=== PATIENT | female | born 1945 | race Caucasian/White ===

== ENCOUNTER 2019-08-28 10:35 | Observation (INO) ==
[2019-08-28 11:57] LABS: Basophils % 0.4 % (0.0-0.8); Eosinophils # 0.2 10*3/uL (0.0-0.87); Eosinophils % 3.2 % (0.00-10.9); Hematocrit 33.2 VOL% (35.7-47.0); Hemoglobin 11.2 GM/DL (12.0-16.0); Immature Granulocytes % 0.6 %; Immature Granulocytes Absolute 0.04 #; Lymphocytes # 1.3 10*3/uL (1.4-4.0); Mean Corpuscular HGB Conc 33.7 GM/DL (32-36); Mean Corpuscular Volume 86.2 FL (87-102); Mean Platelet Volume 9.6 FL (9.6-12.0); Monocytes % 6.3 % (1.7-12.7); Neutrophils % 70.5 % (38.7-73.9); Platelet Count 138 T/CUMM (130-400); Red Blood Count 3.85 MC/CUMM (3.8-5.5); Red Cell Distribution Width 15.4 % (9.3-17.3)
[2019-08-28 12:15] LABS: Apearance,Urine CLOUDY (Clear); Bacteria,Urine Occasional /HPF (Few); Bilirubin,Urine Negative (Negative); Blood, Urine Moderate mg/dL (Negative); Glucose,Urine (UA) Negative (Negative); Ketones,Urine Negative (Negative); Nitrite,Urine Negative (Negative); Protein,Urine 30 MG/DL; RBC,Urine 12 /HPF (0-4); Squamous Epithelial Cell,Urine Occasional /HPF (0-10); Urine Color Yellow (Yellow); Urine Specific Gravity 1.006 (1.001-1.035); Urine Urobilinogen < 2.0 EU/DL (0.2-1.0); WBC,Urine 186 /HPF (0-6)
[2019-08-28 12:25] LABS: Platelet Estimate Adequate
[2019-08-28 12:26] LABS: Anisocytosis 1+
[2019-08-28] MEDS ORDERED: cefTRIAXone 1,000 MG in SODIUM CHLORIDE 0.9% 100 ML IV STA (13:02)
[2019-08-28] MEDS ORDERED: DEXTROSE 50% 25 GM/50 ML VIAL IV PRN (13:18)
[2019-08-28] MEDS ORDERED: GLUCAGON 1 MG VIAL IM PRN (13:18)
[2019-08-28] MEDS ORDERED: ONDANSETRON 4 MG/2 ML VIAL IV PRN (13:18)
[2019-08-28 14:09] LABS: Albumin 2.8 G/DL (3.4-5.0); Bilirubin,Total 1.1 MG/DL (0.2-1.0); Calcium 9.4 MG/DL (8.5-10.1); Osmolality,Calculated 291.7 MOS/KG (273-304); Total Protein 7.2 G/DL (6.4-8.3)
[2019-08-28] MEDS ORDERED: hydrALAZINE 20 MG/1 ML VIAL IV PRN (14:13)
[2019-08-28] MEDS: SODIUM CHLORIDE 0.9% 1,000 ML IV SCH (15:46)
[2019-08-28] MEDS: INSULIN LISPRO 100 UNIT/ML SUBCUT SCH ×2 (15:56→21:38)
[2019-08-28] MEDS: DESITIN 4OZ/NYSTATIN 15 GRAM MIXTURE PASTE TOP SCH (21:38)
[2019-08-29] MEDS: SODIUM CHLORIDE 0.9% 1,000 ML IV SCH ×2 (05:07→18:09)
[2019-08-29 05:33] LABS: Basophils % 0.5 % (0.0-0.8); Eosinophils # 0.3 10*3/uL (0.0-0.87); Hematocrit 35.7 VOL% (35.7-47.0); Hemoglobin 11.8 GM/DL (12.0-16.0); Immature Granulocytes % 0.5 %; Immature Granulocytes Absolute 0.03 #; Lymphocytes # 1.5 10*3/uL (1.4-4.0); Lymphocytes % 23.7 % (21.3-54.2); Mean Corpuscular HGB Conc 33.1 GM/DL (32-36); Mean Corpuscular Volume 88.6 FL (87-102); Mean Platelet Volume 9.6 FL (9.6-12.0); Monocytes % 9.6 % (1.7-12.7); Neutrophils % 60.7 % (38.7-73.9); Platelet Count 221 T/CUMM (130-400); Red Blood Count 4.03 MC/CUMM (3.8-5.5); Red Cell Distribution Width 15.5 % (9.3-17.3); White Blood Count 6.4 T/CUMM (4-12)
[2019-08-29 05:56] LABS: Albumin 2.1 G/DL (3.4-5.0); Calcium 8.1 MG/DL (8.5-10.1); Osmolality,Calculated 290.7 MOS/KG (273-304); Total Protein 6.8 G/DL (6.4-8.3)
[2019-08-29] MEDS ORDERED: ACETAMINOPHEN 325 MG TABLET PO PRN (09:28)
[2019-08-29] MEDS: DESITIN 4OZ/NYSTATIN 15 GRAM MIXTURE PASTE TOP SCH ×2 (09:57→22:02)
[2019-08-29] MEDS: POTASSIUM CHLORIDE 20 MEQ TABLET PO PRN ×4 (09:57→16:45)
[2019-08-29] MEDS: cefTRIAXone 1,000 MG in SYRINGE 1 EACH IV SCH (09:57)
[2019-08-29] MEDS: INSULIN LISPRO 100 UNIT/ML SUBCUT SCH ×4 (10:08→22:02)
[2019-08-29] MEDS: INSULIN GLARGINE 100 UNIT/ML SUBCUT SCH (22:02)
[2019-08-29] MEDS: ZALEPLON 5 MG CAPSULE PO SCH (22:02)
[2019-08-30 06:47] LABS: Basophils % 0.5 % (0.0-0.8); Eosinophils # 0.3 10*3/uL (0.0-0.87); Eosinophils % 5.2 % (0.00-10.9); Hematocrit 32.5 VOL% (35.7-47.0); Immature Granulocytes % 0.3 %; Immature Granulocytes Absolute 0.02 #; Lymphocytes # 1.2 10*3/uL (1.4-4.0); Lymphocytes % 21.1 % (21.3-54.2); Mean Corpuscular HGB Conc 33.8 GM/DL (32-36); Mean Corpuscular Volume 87.6 FL (87-102); Mean Platelet Volume 9.6 FL (9.6-12.0); Monocytes % 9.2 % (1.7-12.7); Neutrophils % 63.7 % (38.7-73.9); Platelet Count 190 T/CUMM (130-400); Red Blood Count 3.71 MC/CUMM (3.8-5.5); Red Cell Distribution Width 15.3 % (9.3-17.3); White Blood Count 5.8 T/CUMM (4-12)
[2019-08-30 07:09] LABS: Calcium 8.1 MG/DL (8.5-10.1); Osmolality,Calculated 277.1 MOS/KG (273-304)
[2019-08-30] MEDS: SODIUM CHLORIDE 0.9% 1,000 ML IV SCH ×2 (07:29→22:00)
[2019-08-30] MEDS ORDERED: CYANOCOBALAMIN 1000 MCG/1 ML VIAL IM SCH (09:00)
[2019-08-30] MEDS: DESITIN 4OZ/NYSTATIN 15 GRAM MIXTURE PASTE TOP SCH ×2 (10:16→22:30)
[2019-08-30] MEDS: cefTRIAXone 1,000 MG in SYRINGE 1 EACH IV SCH (10:16)
[2019-08-30] MEDS: INSULIN LISPRO 100 UNIT/ML SUBCUT SCH ×4 (10:16→22:25)
[2019-08-30] MEDS: CHOLECALCIFEROL 5,000 UNIT TABLET PO SCH (10:17)
[2019-08-30] MEDS: ENOXAPARIN 40 MG/0.4 ML SYRINGE SUBCUT SCH (13:26)
[2019-08-30] MEDS: ERTAPENEM 1,000 MG in SODIUM CHLORIDE 0.9% 100 ML IV SCH (16:30)
[2019-08-30] MEDS: INSULIN GLARGINE 100 UNIT/ML SUBCUT SCH (22:25)
[2019-08-30] MEDS: ZALEPLON 5 MG CAPSULE PO SCH (22:27)
[2019-08-31 06:38] LABS: Basophils % 0.4 % (0.0-0.8); Eosinophils # 0.3 10*3/uL (0.0-0.87); Eosinophils % 5.7 % (0.00-10.9); Hemoglobin 10.8 GM/DL (12.0-16.0); Immature Granulocytes % 0.6 %; Immature Granulocytes Absolute 0.03 #; Lymphocytes % 20.3 % (21.3-54.2); Mean Corpuscular HGB Conc 33.8 GM/DL (32-36); Mean Corpuscular Volume 86.3 FL (87-102); Mean Platelet Volume 9.5 FL (9.6-12.0); Monocytes % 9.3 % (1.7-12.7); Neutrophils % 63.7 % (38.7-73.9); Platelet Count 177 T/CUMM (130-400); Red Blood Count 3.71 MC/CUMM (3.8-5.5); Red Cell Distribution Width 15.2 % (9.3-17.3); White Blood Count 5.1 T/CUMM (4-12)
[2019-08-31 07:02] LABS: Calcium 8.3 MG/DL (8.5-10.1)
[2019-08-31] MEDS: CHOLECALCIFEROL 5,000 UNIT TABLET PO SCH (09:03)
[2019-08-31] MEDS: DESITIN 4OZ/NYSTATIN 15 GRAM MIXTURE PASTE TOP SCH (09:03)
[2019-08-31] MEDS: INSULIN LISPRO 100 UNIT/ML SUBCUT SCH ×2 (09:03→12:16)
[2019-08-31] MEDS: ENOXAPARIN 40 MG/0.4 ML SYRINGE SUBCUT SCH (12:16)
[2019-08-31] MEDS: SODIUM CHLORIDE 0.9% 1,000 ML IV SCH (12:16)
[2019-08-31 13:52] VITALS: BP 169/85
[2019-08-31] MEDS: ERTAPENEM 1,000 MG in SODIUM CHLORIDE 0.9% 100 ML IV SCH (16:16)
== END 2019-08-31 15:50 ==
LOC: EDUNIT# → EDBD → N.EDINP 10:35 → N.ED 10:35 → SUATTDRO 13:15 → SUPCPDRO 13:15 → N.EDINP 15:20 → N.2E 15:56
PROVIDERS: ADMIT Internal Medicine; ATTEND Internal Medicine Cardiovascular Disease

== ENCOUNTER 2019-09-13 06:32 | Inpatient (IN) ==
[2019-09-13] MEDS ORDERED: SODIUM CHLORIDE 0.9% 500 ML IV STA (07:00)
[2019-09-13 07:11] LABS: Basophils % 0.3 % (0.0-0.8); Eosinophils # 0.1 10*3/uL (0.0-0.87); Eosinophils % 2.4 % (0.00-10.9); Hematocrit 36.8 VOL% (35.7-47.0); Hemoglobin 12.9 GM/DL (12.0-16.0); Immature Granulocytes % 0.6 %; Immature Granulocytes Absolute 0.02 #; Lymphocytes % 29.6 % (21.3-54.2); Mean Corpuscular HGB Conc 35.1 GM/DL (32-36); Mean Corpuscular Volume 85.2 FL (87-102); Mean Platelet Volume 9.5 FL (9.6-12.0); Monocytes % 10.5 % (1.7-12.7); Neutrophils % 56.6 % (38.7-73.9); Platelet Count 243 T/CUMM (130-400); Red Blood Count 4.32 MC/CUMM (3.8-5.5); Red Cell Distribution Width 15.5 % (9.3-17.3); White Blood Count 3.3 T/CUMM (4-12)
[2019-09-13 07:18] LABS: INR 1.2; PT Patient Result 13.2 SECS (9.8-11.9)
[2019-09-13] MEDS ORDERED: ERTAPENEM 1,000 MG in SODIUM CHLORIDE 0.9% 100 ML IV ONE (07:20)
[2019-09-13 07:21] LABS: Albumin 2.5 G/DL (3.4-5.0); Bilirubin,Total 0.7 MG/DL (0.2-1.0); Calcium 8.8 MG/DL (8.5-10.1); Total Protein 7.2 G/DL (6.4-8.3)
[2019-09-13 07:31] LABS: Ferritin 67.8 ng/ml (8-252)
[2019-09-13] MEDS ORDERED: MEROPENEM 1,000 MG in SODIUM CHLORIDE 0.9% 100 ML IV ONE (08:49)
[2019-09-13] MEDS ORDERED: MEROPENEM 500 MG VIAL ONE (08:49)
[2019-09-13 08:58] LABS: Apearance,Urine CLEAR (Clear); Bacteria,Urine Occasional /HPF (Few); Bilirubin,Urine Negative (Negative); Blood, Urine Negative (Negative); Glucose,Urine (UA) Negative (Negative); Ketones,Urine Negative (Negative); Nitrite,Urine Negative (Negative); Protein,Urine 100 MG/DL; Squamous Epithelial Cell,Urine Occasional /HPF (0-10); Urine Color Yellow (Yellow); Urine Urobilinogen < 2.0 EU/DL (0.2-1.0)
[2019-09-13] MEDS ORDERED: ONDANSETRON 4 MG/2 ML VIAL IV PRN (10:27)
[2019-09-13] MEDS ORDERED: DEXTROSE 50% 25 GM/50 ML VIAL IV PRN ×2 (10:27→10:31)
[2019-09-13] MEDS ORDERED: GLUCAGON 1 MG VIAL IM PRN ×3 (10:27→10:31)
[2019-09-13] MEDS ORDERED: LACTULOSE 320 GM/480 ML BOTTLE RECTAL PRN (10:30)
[2019-09-13] MEDS ORDERED: LACTULOSE 320 GM/480 ML BOTTLE RECTAL STA (10:30)
[2019-09-13] MEDS ORDERED: DEXTROSE 10% 250 ML BAG IV PRN (10:31)
[2019-09-13 10:53] LABS: Risk Ratio 3.64; Thyroid Stimulating Hormone 5.37 uIU/ml (0.358-3.74)
[2019-09-13 11:49] LABS: Hepatitis B Core IgM Quant 0.12 Index; Hepatitis B Surface Ag Result Negative (Negative); Hepatitis C Virus Ab Result Negative (Negative)
[2019-09-13] MEDS ORDERED: INSULIN LISPRO 100 UNIT/ML SUBCUT SCH (12:00)
[2019-09-13] MEDS: SODIUM CHLORIDE 0.9% 1,000 ML IV SCH (12:30)
[2019-09-13] MEDS: INSULIN LISPRO 100 UNIT/ML SUBCUT SCH ×2 (17:36→19:02)
[2019-09-13] MEDS ORDERED: ALUMINUM/MAGNES/SIMETH MAX STR 30 ML UDCUP PO PRN (19:50)
[2019-09-14] MEDS: INSULIN GLARGINE 100 UNIT/ML SUBCUT SCH ×2 (00:27→20:57)
[2019-09-14] MEDS: INSULIN LISPRO 100 UNIT/ML SUBCUT SCH ×4 (01:26→20:57)
[2019-09-14] MEDS: SODIUM CHLORIDE 0.9% 1,000 ML IV SCH ×2 (04:08→20:09)
[2019-09-14 07:06] LABS: Basophils % 0.3 % (0.0-0.8); Eosinophils # 0.1 10*3/uL (0.0-0.87); Eosinophils % 3.2 % (0.00-10.9); Hematocrit 32.3 VOL% (35.7-47.0); Hemoglobin 10.9 GM/DL (12.0-16.0); Immature Granulocytes % 0.3 %; Immature Granulocytes Absolute 0.01 #; Lymphocytes # 0.8 10*3/uL (1.4-4.0); Mean Corpuscular HGB Conc 33.7 GM/DL (32-36); Mean Corpuscular Volume 87.1 FL (87-102); Mean Platelet Volume 9.5 FL (9.6-12.0); Monocytes % 9.4 % (1.7-12.7); Neutrophils % 62.8 % (38.7-73.9); Platelet Count 195 T/CUMM (130-400); Red Blood Count 3.71 MC/CUMM (3.8-5.5); Red Cell Distribution Width 15.9 % (9.3-17.3); White Blood Count 3.4 T/CUMM (4-12)
[2019-09-14 07:21] LABS: Albumin 2.1 G/DL (3.4-5.0); Bilirubin,Total 0.8 MG/DL (0.2-1.0); Calcium 8.2 MG/DL (8.5-10.1); Osmolality,Calculated 283.8 MOS/KG (273-304); Total Protein 6.4 G/DL (6.4-8.3)
[2019-09-14] MEDS ORDERED: LACTULOSE 20 GM/30 ML UDCUP PO PRN (07:54)
[2019-09-14] MEDS ORDERED: VANCOMYCIN INJ 1,000 MG in SODIUM CHLORIDE 0.9% 250 ML IV SCH (09:00)
[2019-09-14] MEDS: RIFAXIMIN 550 MG TABLET PO SCH ×2 (09:30→20:57)
[2019-09-14] MEDS: CHOLECALCIFEROL 1,000 UNIT TABLET PO SCH (09:30)
[2019-09-14] MEDS: ENOXAPARIN 30 MG/0.3 ML SYRINGE SUBCUT SCH (09:30)
[2019-09-14] MEDS ORDERED: POTASSIUM CHLORIDE 20 MEQ TABLET PO ONE (10:37)
[2019-09-14] MEDS: ACETAMINOPHEN 325 MG TABLET PO PRN (12:17)
[2019-09-14] MEDS: amLODIPine 5 MG TABLET PO SCH (12:18)
[2019-09-14] MEDS: ZALEPLON 5 MG CAPSULE PO SCH (20:57)
[2019-09-15 05:55] LABS: Eosinophils # 0.1 10*3/uL (0.0-0.87); Eosinophils % 5.3 % (0.00-10.9); Hematocrit 28.3 VOL% (35.7-47.0); Hemoglobin 9.4 GM/DL (12.0-16.0); Immature Granulocytes % 0.4 %; Immature Granulocytes Absolute 0.01 #; Lymphocytes # 0.9 10*3/uL (1.4-4.0); Lymphocytes % 36.3 % (21.3-54.2); Mean Corpuscular HGB Conc 33.2 GM/DL (32-36); Mean Corpuscular Volume 88.2 FL (87-102); Mean Platelet Volume 9.8 FL (9.6-12.0); Monocytes % 16.3 % (1.7-12.7); Neutrophils % 41.7 % (38.7-73.9); Platelet Count 115 T/CUMM (130-400); Red Blood Count 3.21 MC/CUMM (3.8-5.5); Red Cell Distribution Width 15.4 % (9.3-17.3); White Blood Count 2.5 T/CUMM (4-12)
[2019-09-15] MEDS: ACETAMINOPHEN 325 MG TABLET PO PRN (05:56)
[2019-09-15] MEDS: LEVOTHYROXINE 50 MCG TABLET PO SCH (05:56)
[2019-09-15 06:19] LABS: Eosinophils 3 % (0-10); Hypochromasia Slight; Lymphocytes 28 % (20-55); Ovalocytes Slight; Platelet Estimate Decreased; Segmented Neutrophils 55 % (50-85); Total Cells Counted 100
[2019-09-15 06:38] LABS: Albumin 1.5 G/DL (3.4-5.0); Bilirubin,Total 0.6 MG/DL (0.2-1.0); Osmolality,Calculated 289.1 MOS/KG (273-304)
[2019-09-15] MEDS: INSULIN LISPRO 100 UNIT/ML SUBCUT SCH ×4 (08:00→20:15)
[2019-09-15] MEDS: SODIUM CHLORIDE 0.9% 1,000 ML IV SCH (09:30)
[2019-09-15] MEDS: ENOXAPARIN 30 MG/0.3 ML SYRINGE SUBCUT SCH (09:31)
[2019-09-15] MEDS: FUROSEMIDE 40 MG TABLET PO SCH (09:31)
[2019-09-15] MEDS: CHOLECALCIFEROL 1,000 UNIT TABLET PO SCH (09:31)
[2019-09-15] MEDS: amLODIPine 5 MG TABLET PO SCH (09:31)
[2019-09-15] MEDS: RIFAXIMIN 550 MG TABLET PO SCH ×2 (09:31→20:11)
[2019-09-15] MEDS: VANCOMYCIN INJ 1,000 MG in SODIUM CHLORIDE 0.9% 250 ML IV SCH (09:32)
[2019-09-15] MEDS: SPIRONOLACTONE 25 MG TABLET PO SCH (09:32)
[2019-09-15 15:18] LABS: Ferritin 62.7 ng/ml (8-252)
[2019-09-15] MEDS: INSULIN GLARGINE 100 UNIT/ML SUBCUT SCH (20:11)
[2019-09-15] MEDS: ZALEPLON 5 MG CAPSULE PO SCH (20:11)
[2019-09-16] MEDS: VANCOMYCIN INJ 1,000 MG in SODIUM CHLORIDE 0.9% 250 ML IV SCH ×2 (03:15→21:47)
[2019-09-16 05:28] LABS: Eosinophils # 0.1 10*3/uL (0.0-0.87); Eosinophils % 5.1 % (0.00-10.9); Hematocrit 29.2 VOL% (35.7-47.0); Immature Granulocytes % 0.4 %; Immature Granulocytes Absolute 0.01 #; Lymphocytes # 0.5 10*3/uL (1.4-4.0); Lymphocytes % 19.9 % (21.3-54.2); Mean Corpuscular HGB Conc 34.2 GM/DL (32-36); Mean Corpuscular Volume 85.1 FL (87-102); Monocytes % 11.3 % (1.7-12.7); Neutrophils % 63.3 % (38.7-73.9); Platelet Count 110 T/CUMM (130-400); Red Blood Count 3.43 MC/CUMM (3.8-5.5); Red Cell Distribution Width 15.3 % (9.3-17.3); White Blood Count 2.6 T/CUMM (4-12)
[2019-09-16 05:47] LABS: Albumin 1.9 G/DL (3.4-5.0); Bilirubin,Total 0.5 MG/DL (0.2-1.0); Calcium 7.5 MG/DL (8.5-10.1); Osmolality,Calculated 275.4 MOS/KG (273-304); Total Protein 5.5 G/DL (6.4-8.3)
[2019-09-16 05:50] LABS: Hypochromasia 1+; Microcytosis 1+; Platelet Estimate Decreased
[2019-09-16] MEDS: LEVOTHYROXINE 50 MCG TABLET PO SCH (06:06)
[2019-09-16] MEDS: CHOLECALCIFEROL 1,000 UNIT TABLET PO SCH (10:00)
[2019-09-16] MEDS: amLODIPine 10 MG TABLET PO SCH (10:00)
[2019-09-16] MEDS: INSULIN LISPRO 100 UNIT/ML SUBCUT SCH ×4 (10:00→21:46)
[2019-09-16] MEDS: ENOXAPARIN 40 MG/0.4 ML SYRINGE SUBCUT SCH (10:00)
[2019-09-16] MEDS: SPIRONOLACTONE 25 MG TABLET PO SCH (10:00)
[2019-09-16] MEDS: FUROSEMIDE 40 MG TABLET PO SCH (10:00)
[2019-09-16] MEDS: RIFAXIMIN 550 MG TABLET PO SCH ×2 (10:01→21:45)
[2019-09-16] MEDS: ACETAMINOPHEN 325 MG TABLET PO PRN (10:19)
[2019-09-16] MEDS: LACTULOSE 20 GM/30 ML UDCUP PO SCH (21:45)
[2019-09-16] MEDS: ZALEPLON 5 MG CAPSULE PO SCH (21:45)
[2019-09-16] MEDS: INSULIN GLARGINE 100 UNIT/ML SUBCUT SCH (21:47)
[2019-09-17 05:37] LABS: Eosinophils # 0.1 10*3/uL (0.0-0.87); Eosinophils % 4.8 % (0.00-10.9); Hematocrit 30.2 VOL% (35.7-47.0); Hemoglobin 10.2 GM/DL (12.0-16.0); Immature Granulocytes Absolute 0.02 #; Lymphocytes # 0.5 10*3/uL (1.4-4.0); Lymphocytes % 22.4 % (21.3-54.2); Mean Corpuscular HGB Conc 33.8 GM/DL (32-36); Mean Corpuscular Volume 87.5 FL (87-102); Mean Platelet Volume 10.1 FL (9.6-12.0); Monocytes % 11.9 % (1.7-12.7); Neutrophils % 59.9 % (38.7-73.9); Platelet Count 147 T/CUMM (130-400); Red Blood Count 3.45 MC/CUMM (3.8-5.5); Red Cell Distribution Width 15.2 % (9.3-17.3); White Blood Count 2.1 T/CUMM (4-12)
[2019-09-17] MEDS: LEVOTHYROXINE 50 MCG TABLET PO SCH (05:51)
[2019-09-17 06:02] LABS: Hypochromasia 1+; Microcytosis Slight
[2019-09-17 06:03] LABS: Platelet Estimate Normal
[2019-09-17 06:09] LABS: Calcium 7.8 MG/DL (8.5-10.1); Osmolality,Calculated 277.1 MOS/KG (273-304)
[2019-09-17] MEDS: CHOLECALCIFEROL 1,000 UNIT TABLET PO SCH (08:03)
[2019-09-17] MEDS: ENOXAPARIN 40 MG/0.4 ML SYRINGE SUBCUT SCH (08:03)
[2019-09-17] MEDS: amLODIPine 10 MG TABLET PO SCH (08:04)
[2019-09-17] MEDS: RIFAXIMIN 550 MG TABLET PO SCH ×2 (08:04→21:17)
[2019-09-17] MEDS: LACTULOSE 20 GM/30 ML UDCUP PO SCH ×3 (08:05→21:30)
[2019-09-17] MEDS: SPIRONOLACTONE 25 MG TABLET PO SCH (08:05)
[2019-09-17] MEDS: FUROSEMIDE 40 MG TABLET PO SCH (08:05)
[2019-09-17] MEDS: INSULIN LISPRO 100 UNIT/ML SUBCUT SCH ×4 (08:05→21:17)
[2019-09-17] MEDS: ACETAMINOPHEN 325 MG TABLET PO PRN (15:43)
[2019-09-17] MEDS: ZALEPLON 5 MG CAPSULE PO SCH (21:17)
[2019-09-17] MEDS: INSULIN GLARGINE 100 UNIT/ML SUBCUT SCH (21:17)
[2019-09-18] MEDS: LEVOTHYROXINE 50 MCG TABLET PO SCH (06:23)
[2019-09-18 07:08] LABS: Eosinophils # 0.1 10*3/uL (0.0-0.87); Eosinophils % 5.5 % (0.00-10.9); Hematocrit 30.8 VOL% (35.7-47.0); Hemoglobin 10.6 GM/DL (12.0-16.0); Immature Granulocytes % 1.3 %; Immature Granulocytes Absolute 0.03 #; Lymphocytes # 0.6 10*3/uL (1.4-4.0); Mean Corpuscular HGB Conc 34.4 GM/DL (32-36); Mean Corpuscular Volume 85.1 FL (87-102); Mean Platelet Volume 10.9 FL (9.6-12.0); Monocytes % 12.3 % (1.7-12.7); Neutrophils % 54.9 % (38.7-73.9); Platelet Count 116 T/CUMM (130-400); Red Blood Count 3.62 MC/CUMM (3.8-5.5); Red Cell Distribution Width 15.3 % (9.3-17.3); White Blood Count 2.4 T/CUMM (4-12)
[2019-09-18 07:19] LABS: Calcium 7.7 MG/DL (8.5-10.1); Osmolality,Calculated 279.1 MOS/KG (273-304)
[2019-09-18] MEDS ORDERED: MAGNESIUM SULF RIDER 4 GM in PREMIX 1 EACH IV PRN (07:25)
[2019-09-18] MEDS ORDERED: MAGNESIUM SULF RIDER 2 GM in PREMIX 1 EACH IV PRN (07:25)
[2019-09-18 07:42] LABS: Anisocytosis 1+; Band Neutrophils 7 % (0-10); Eosinophils 3 % (0-10); Lymphocytes 21 % (20-55); Nucleated Red Blood Cells 2 (0-5); Platelet Estimate Adequate; Segmented Neutrophils 60 % (50-85); Total Cells Counted 100
[2019-09-18 07:43] LABS: Macrocytosis Slight
[2019-09-18] MEDS: CHOLECALCIFEROL 1,000 UNIT TABLET PO SCH (08:20)
[2019-09-18] MEDS: SPIRONOLACTONE 25 MG TABLET PO SCH (08:20)
[2019-09-18] MEDS: ENOXAPARIN 40 MG/0.4 ML SYRINGE SUBCUT SCH (08:20)
[2019-09-18] MEDS: RIFAXIMIN 550 MG TABLET PO SCH ×2 (08:20→21:39)
[2019-09-18] MEDS: amLODIPine 10 MG TABLET PO SCH (08:20)
[2019-09-18] MEDS: LACTULOSE 20 GM/30 ML UDCUP PO SCH ×2 (08:20→21:39)
[2019-09-18] MEDS: FUROSEMIDE 40 MG TABLET PO SCH (08:20)
[2019-09-18] MEDS: INSULIN LISPRO 100 UNIT/ML SUBCUT SCH ×4 (08:35→21:39)
[2019-09-18] MEDS: ACETAMINOPHEN 325 MG TABLET PO PRN (16:03)
[2019-09-18] MEDS: INSULIN GLARGINE 100 UNIT/ML SUBCUT SCH (21:39)
[2019-09-19] MEDS: ZALEPLON 5 MG CAPSULE PO SCH (00:22)
[2019-09-19] MEDS: LEVOTHYROXINE 50 MCG TABLET PO SCH (06:00)
[2019-09-19] MEDS: CHOLECALCIFEROL 1,000 UNIT TABLET PO SCH (10:05)
[2019-09-19] MEDS: amLODIPine 10 MG TABLET PO SCH (10:05)
[2019-09-19] MEDS: LACTULOSE 20 GM/30 ML UDCUP PO SCH (10:05)
[2019-09-19] MEDS: FUROSEMIDE 40 MG TABLET PO SCH (10:05)
[2019-09-19] MEDS: RIFAXIMIN 550 MG TABLET PO SCH (10:07)
[2019-09-19] MEDS: ENOXAPARIN 40 MG/0.4 ML SYRINGE SUBCUT SCH (10:07)
[2019-09-19] MEDS: SPIRONOLACTONE 25 MG TABLET PO SCH (10:12)
[2019-09-19] MEDS: INSULIN LISPRO 100 UNIT/ML SUBCUT SCH ×2 (10:37→13:17)
[2019-09-19 13:55] VITALS: BP 131/60
[2019-10-13] MEDS ORDERED: CYANOCOBALAMIN 1000 MCG/1 ML VIAL IM SCH (08:00)
== END 2019-09-19 14:08 | DRG 441 ==
LOC: EDUNIT# → EDBD → N.ED 06:32 → N.EDINP 09:57 → SUATTDRO 09:57 → N.2E 13:45 → N.TELES 15:42 → N.2W 09-15 11:42 → N.2E 09-18 14:06
PROVIDERS: ADMIT Family Medicine; ATTEND Internal Medicine

== ENCOUNTER 2020-07-08 14:44 | Inpatient (IN) ==
[2020-07-08] MEDS ORDERED: SODIUM CHLORIDE 0.9% 1,000 ML IV STA (15:48)
[2020-07-08 16:00] LABS: Bilirubin,Urine Negative (Negative); Blood, Urine Moderate mg/dL (Negative); Glucose,Urine (UA) Negative (Negative); Ketones,Urine Negative (Negative); Nitrite,Urine Negative (Negative); Protein,Urine 100 MG/DL; Urine Appearance CLOUDY (Clear); Urine Color Yellow (Yellow); Urine Specific Gravity 1.009 (1.001-1.035); Urine Urobilinogen < 2.0 EU/DL (0.2-1.0); WBC,Urine 3062 /HPF (0-6)
[2020-07-08] MEDS ORDERED: LEVOFLOXACIN INJ 500 MG in PREMIX 1 EACH IV STA (16:12)
[2020-07-08] MEDS ORDERED: LEVOFLOXACIN INJ 100 ML IV ONE (16:13)
[2020-07-08 16:19] LABS: Basophils % 0.4 % (0.0-0.8); Eosinophils # 0.4 10*3/uL (0.0-0.87); Hematocrit 28.8 VOL% (35.7-47.0); Hemoglobin 10.3 GM/DL (12.0-16.0); Immature Granulocytes % 0.7 %; Immature Granulocytes Absolute 0.05 #; Lymphocytes # 0.7 10*3/uL (1.4-4.0); Lymphocytes % 10.2 % (21.3-54.2); Mean Corpuscular HGB Conc 35.8 GM/DL (32-36); Mean Corpuscular Volume 83.7 FL (87-102); Mean Platelet Volume 8.6 FL (9.6-12.0); Monocytes % 11.6 % (1.7-12.7); Neutrophils % 72.1 % (38.7-73.9); Platelet Count 205 T/CUMM (130-400); Red Blood Count 3.44 MC/CUMM (3.8-5.5); Red Cell Distribution Width 14.9 % (9.3-17.3); White Blood Count 7.1 T/CUMM (4-12)
[2020-07-08 16:43] LABS: Cannabinoid Screen,Urine Negative (Negative); Opiate Screen,Urine Negative (Negative)
[2020-07-08 16:44] LABS: Bilirubin,Total 1.7 MG/DL (0.2-1.0); Osmolality,Calculated 284.4 MOS/KG (273-304)
[2020-07-08 16:52] LABS: Phencyclidine Screen,Urine Negative (Negative)
[2020-07-08 16:53] LABS: Barbiturates Screen,Urine Negative (Negative)
[2020-07-08 16:54] LABS: Benzodiazepines Screen,Urine Negative (Negative)
[2020-07-08 17:33] LABS: Atypical Lymphocytes Few; Band Neutrophils 1 % (0-10); Eosinophils 4 % (0-10); Lymphocytes 9 % (20-55); Microcytosis Slight; Polychromasia Few; Segmented Neutrophils 78 % (50-85); Total Cells Counted 99
[2020-07-08 17:34] LABS: Platelet Estimate Normal
[2020-07-08] MEDS ORDERED: GLUCAGON 1 MG VIAL IM PRN (17:36)
[2020-07-08] MEDS ORDERED: DEXTROSE 50% 25 GM/50 ML VIAL IV PRN ×2 (17:36)
[2020-07-08] MEDS ORDERED: ACETAMINOPHEN 325 MG TABLET PO PRN (17:36)
[2020-07-08] MEDS ORDERED: ONDANSETRON 4 MG/2 ML VIAL IV PRN (17:36)
[2020-07-08] MEDS ORDERED: POTASSIUM CHLORIDE 20 MEQ TABLET PO ONE (17:59)
[2020-07-08] MEDS ORDERED: INSULIN REGULAR 100 UNIT/ML SUBCUT SCH (21:00)
[2020-07-08] MEDS: LACTULOSE 20 GM/30 ML UDCUP PO SCH (21:32)
[2020-07-08] MEDS: INSULIN REGULAR 100 UNIT/ML SUBCUT SCH (21:33)
[2020-07-08] MEDS: GABAPENTIN 300 MG CAPSULE PO SCH (21:33)
[2020-07-08] MEDS: RIFAXIMIN 550 MG TABLET PO SCH (21:33)
[2020-07-08] MEDS: ZALEPLON 5 MG CAPSULE PO SCH (21:33)
[2020-07-08] MEDS: ENOXAPARIN 30 MG/0.3 ML SYRINGE SUBCUT SCH (21:33)
[2020-07-08] MEDS: MELOXICAM 7.5 MG TABLET PO SCH (21:34)
[2020-07-08] MEDS: SODIUM CHLORIDE 0.9% 1,000 ML IV SCH (21:34)
[2020-07-08] MEDS: OFLOXACIN 0.3% OPH SOLN 5 ML BOTTLE RIGHT EYE SCH (22:38)
[2020-07-08] MEDS: KETOROLAC 0.5% OPH SOLN 5 ML BOTTLE RIGHT EYE SCH (22:38)
[2020-07-08] MEDS: prednisoLONE ACETATE 1% OPH SUSP 5 ML BOTTLE RIGHT EYE SCH (22:39)
[2020-07-09 04:26] LABS: Basophils % 0.3 % (0.0-0.8); Eosinophils # 0.2 10*3/uL (0.0-0.87); Eosinophils % 3.2 % (0.00-10.9); Hematocrit 26.6 VOL% (35.7-47.0); Hemoglobin 9.3 GM/DL (12.0-16.0); Immature Granulocytes % 0.4 %; Immature Granulocytes Absolute 0.03 #; Lymphocytes # 0.6 10*3/uL (1.4-4.0); Lymphocytes % 8.3 % (21.3-54.2); Mean Corpuscular Volume 84.2 FL (87-102); Monocytes % 12.7 % (1.7-12.7); Neutrophils % 75.1 % (38.7-73.9); Platelet Count 171 T/CUMM (130-400); Red Blood Count 3.16 MC/CUMM (3.8-5.5); Red Cell Distribution Width 14.8 % (9.3-17.3); White Blood Count 7.4 T/CUMM (4-12)
[2020-07-09 04:50] LABS: Albumin 2.7 G/DL (3.4-5.0); Bilirubin,Total 1.7 MG/DL (0.2-1.0); Calcium 8.9 MG/DL (8.5-10.1); Osmolality,Calculated 274.5 MOS/KG (273-304); Potassium 2.9 MMOL/L (3.5-5.1); Total Protein 7.1 G/DL (6.4-8.2)
[2020-07-09] MEDS: POTASSIUM CHLORIDE 20 MEQ TABLET PO PRN ×2 (05:33→08:31)
[2020-07-09] MEDS: LEVOTHYROXINE 50 MCG TABLET PO SCH (05:33)
[2020-07-09] MEDS: GABAPENTIN 300 MG CAPSULE PO SCH ×3 (08:31→21:34)
[2020-07-09] MEDS: CHOLECALCIFEROL 1,000 UNIT TABLET PO SCH (08:31)
[2020-07-09] MEDS: MELOXICAM 7.5 MG TABLET PO SCH ×2 (08:31→21:34)
[2020-07-09] MEDS: FUROSEMIDE 40 MG TABLET PO SCH (08:31)
[2020-07-09] MEDS: amLODIPine 10 MG TABLET PO SCH (08:31)
[2020-07-09] MEDS: RIFAXIMIN 550 MG TABLET PO SCH ×2 (08:31→21:34)
[2020-07-09] MEDS: DULoxetine 30 MG CAPSULE PO SCH (08:31)
[2020-07-09] MEDS: POTASSIUM CHLORIDE 20 MEQ TABLET PO SCH ×3 (08:32→21:35)
[2020-07-09] MEDS: SPIRONOLACTONE 25 MG TABLET PO SCH (08:32)
[2020-07-09] MEDS: PANTOPRAZOLE 40 MG TABLET PO SCH (08:32)
[2020-07-09] MEDS: LACTULOSE 20 GM/30 ML UDCUP PO SCH ×3 (08:32→21:34)
[2020-07-09 11:58] LABS: INR 1.3; PT Patient Result 13.7 SECS (9.8-11.9)
[2020-07-09] MEDS: INSULIN REGULAR 100 UNIT/ML SUBCUT SCH ×3 (14:16→21:34)
[2020-07-09] MEDS: SODIUM CHLORIDE 0.9% 1,000 ML IV SCH (14:16)
[2020-07-09] MEDS: OFLOXACIN 0.3% OPH SOLN 5 ML BOTTLE RIGHT EYE SCH ×3 (14:17→21:36)
[2020-07-09] MEDS: KETOROLAC 0.5% OPH SOLN 5 ML BOTTLE RIGHT EYE SCH ×3 (14:17→21:36)
[2020-07-09] MEDS: prednisoLONE ACETATE 1% OPH SUSP 5 ML BOTTLE RIGHT EYE SCH ×3 (14:18→21:36)
[2020-07-09] MEDS ORDERED: LEVOFLOXACIN INJ 250 MG in PREMIX 1 EACH IV SCH (17:00)
[2020-07-09] MEDS: ZINC OXIDE PASTE 113 GM TUBE TOP SCH ×2 (17:01→21:36)
[2020-07-09] MEDS ORDERED: VANCOMYCIN INJ 2,000 MG in SODIUM CHLORIDE 0.9% 500 ML IV ONE (18:00)
[2020-07-09] MEDS: ZALEPLON 5 MG CAPSULE PO SCH (21:34)
[2020-07-09] MEDS: ENOXAPARIN 30 MG/0.3 ML SYRINGE SUBCUT SCH (21:35)
[2020-07-10] MEDS: LEVOTHYROXINE 50 MCG TABLET PO SCH (05:38)
[2020-07-10 06:54] LABS: Basophils % 0.5 % (0.0-0.8); Eosinophils # 0.3 10*3/uL (0.0-0.87); Eosinophils % 4.7 % (0.00-10.9); Hematocrit 26.2 VOL% (35.7-47.0); Hemoglobin 9.3 GM/DL (12.0-16.0); Immature Granulocytes % 0.3 %; Immature Granulocytes Absolute 0.02 #; Lymphocytes # 0.6 10*3/uL (1.4-4.0); Lymphocytes % 9.3 % (21.3-54.2); Mean Corpuscular HGB Conc 35.5 GM/DL (32-36); Mean Corpuscular Volume 84.2 FL (87-102); Mean Platelet Volume 9.4 FL (9.6-12.0); Monocytes % 13.7 % (1.7-12.7); Neutrophils % 71.5 % (38.7-73.9); Platelet Count 162 T/CUMM (130-400); Red Blood Count 3.11 MC/CUMM (3.8-5.5); Red Cell Distribution Width 15.1 % (9.3-17.3); White Blood Count 6.1 T/CUMM (4-12)
[2020-07-10 07:03] LABS: Calcium 8.8 MG/DL (8.5-10.1); Osmolality,Calculated 277.4 MOS/KG (273-304); Potassium 3.7 MMOL/L (3.5-5.1)
[2020-07-10] MEDS: CHOLECALCIFEROL 1,000 UNIT TABLET PO SCH (09:41)
[2020-07-10] MEDS: LACTULOSE 20 GM/30 ML UDCUP PO SCH ×3 (09:41→22:01)
[2020-07-10] MEDS: FUROSEMIDE 40 MG TABLET PO SCH (09:41)
[2020-07-10] MEDS: PANTOPRAZOLE 40 MG TABLET PO SCH (09:41)
[2020-07-10] MEDS: RIFAXIMIN 550 MG TABLET PO SCH ×2 (09:41→22:01)
[2020-07-10] MEDS: SPIRONOLACTONE 25 MG TABLET PO SCH (09:42)
[2020-07-10] MEDS: amLODIPine 10 MG TABLET PO SCH (09:42)
[2020-07-10] MEDS: POTASSIUM CHLORIDE 20 MEQ TABLET PO SCH ×3 (09:42→22:01)
[2020-07-10] MEDS: MELOXICAM 7.5 MG TABLET PO SCH ×2 (09:42→22:02)
[2020-07-10] MEDS: DULoxetine 30 MG CAPSULE PO SCH (09:42)
[2020-07-10] MEDS: OFLOXACIN 0.3% OPH SOLN 5 ML BOTTLE RIGHT EYE SCH ×4 (09:42→22:03)
[2020-07-10] MEDS: KETOROLAC 0.5% OPH SOLN 5 ML BOTTLE RIGHT EYE SCH ×4 (09:42→22:03)
[2020-07-10] MEDS: GABAPENTIN 300 MG CAPSULE PO SCH ×3 (09:42→22:01)
[2020-07-10] MEDS: ZINC OXIDE PASTE 113 GM TUBE TOP SCH ×2 (09:42→22:04)
[2020-07-10] MEDS: prednisoLONE ACETATE 1% OPH SUSP 5 ML BOTTLE RIGHT EYE SCH ×4 (09:42→22:03)
[2020-07-10] MEDS: SODIUM CHLORIDE 0.9% 1,000 ML IV SCH (09:43)
[2020-07-10] MEDS: INSULIN REGULAR 100 UNIT/ML SUBCUT SCH ×4 (09:55→22:02)
[2020-07-10 11:56] LABS: Hepatitis B Core IgM Quant < 0.05 Index; Hepatitis B Surface Ag Quant < 0.10 Index; Hepatitis B Surface Ag Result Non-Reactive (NonReactive); Hepatitis C Virus Ab Quant 0.07 Index; Hepatitis C Virus Ab Result Non-Reactive (NonReactive)
[2020-07-10] MEDS: cefTRIAXone 1,000 MG in SYRINGE 1 EACH IV SCH (13:37)
[2020-07-10] MEDS ORDERED: VANCOMYCIN INJ 1,250 MG in SODIUM CHLORIDE 0.9% 250 ML IV PRN (17:00)
[2020-07-10] MEDS: ZALEPLON 5 MG CAPSULE PO SCH (22:02)
[2020-07-10] MEDS: ENOXAPARIN 30 MG/0.3 ML SYRINGE SUBCUT SCH (22:03)
[2020-07-11] MEDS: LEVOTHYROXINE 50 MCG TABLET PO SCH ×2 (05:29→07:03)
[2020-07-11 05:30] LABS: Basophils % 0.4 % (0.0-0.8); Eosinophils # 0.4 10*3/uL (0.0-0.87); Eosinophils % 6.4 % (0.00-10.9); Hematocrit 27.1 VOL% (35.7-47.0); Hemoglobin 9.3 GM/DL (12.0-16.0); Immature Granulocytes % 0.6 %; Immature Granulocytes Absolute 0.04 #; Lymphocytes # 0.8 10*3/uL (1.4-4.0); Lymphocytes % 11.5 % (21.3-54.2); Mean Corpuscular HGB Conc 34.3 GM/DL (32-36); Mean Platelet Volume 9.1 FL (9.6-12.0); Monocytes % 11.7 % (1.7-12.7); Neutrophils % 69.4 % (38.7-73.9); Platelet Count 166 T/CUMM (130-400); Red Blood Count 3.15 MC/CUMM (3.8-5.5); Red Cell Distribution Width 15.1 % (9.3-17.3); White Blood Count 6.8 T/CUMM (4-12)
[2020-07-11 05:39] LABS: Calcium 8.9 MG/DL (8.5-10.1); Osmolality,Calculated 277.2 MOS/KG (273-304); Potassium 3.5 MMOL/L (3.5-5.1)
[2020-07-11] MEDS: SODIUM CHLORIDE 0.9% 1,000 ML IV SCH ×3 (08:10→11:55)
[2020-07-11] MEDS: INSULIN REGULAR 100 UNIT/ML SUBCUT SCH ×4 (08:57→21:03)
[2020-07-11] MEDS: PANTOPRAZOLE 40 MG TABLET PO SCH (08:58)
[2020-07-11] MEDS: LACTULOSE 20 GM/30 ML UDCUP PO SCH ×3 (08:58→21:02)
[2020-07-11] MEDS: prednisoLONE ACETATE 1% OPH SUSP 5 ML BOTTLE RIGHT EYE SCH ×4 (08:58→21:00)
[2020-07-11] MEDS: SPIRONOLACTONE 25 MG TABLET PO SCH (08:58)
[2020-07-11] MEDS: RIFAXIMIN 550 MG TABLET PO SCH ×2 (08:58→21:02)
[2020-07-11] MEDS: MELOXICAM 7.5 MG TABLET PO SCH ×2 (08:58→21:02)
[2020-07-11] MEDS: CHOLECALCIFEROL 1,000 UNIT TABLET PO SCH (08:58)
[2020-07-11] MEDS: FUROSEMIDE 40 MG TABLET PO SCH (08:58)
[2020-07-11] MEDS: GABAPENTIN 300 MG CAPSULE PO SCH ×3 (08:58→21:02)
[2020-07-11] MEDS: POTASSIUM CHLORIDE 20 MEQ TABLET PO SCH ×3 (08:58→21:02)
[2020-07-11] MEDS: amLODIPine 10 MG TABLET PO SCH (08:58)
[2020-07-11] MEDS: DULoxetine 30 MG CAPSULE PO SCH (08:58)
[2020-07-11] MEDS: KETOROLAC 0.5% OPH SOLN 5 ML BOTTLE RIGHT EYE SCH ×4 (08:59→21:00)
[2020-07-11] MEDS: OFLOXACIN 0.3% OPH SOLN 5 ML BOTTLE RIGHT EYE SCH ×4 (08:59→21:00)
[2020-07-11] MEDS: ZINC OXIDE PASTE 113 GM TUBE TOP SCH ×2 (08:59→21:01)
[2020-07-11 11:46] LABS: INR 1.2
[2020-07-11] MEDS: cefTRIAXone 1,000 MG in SYRINGE 1 EACH IV SCH (11:55)
[2020-07-11] MEDS: ZALEPLON 5 MG CAPSULE PO SCH (21:02)
[2020-07-11] MEDS: ENOXAPARIN 30 MG/0.3 ML SYRINGE SUBCUT SCH (21:03)
[2020-07-12] MEDS: LEVOTHYROXINE 50 MCG TABLET PO SCH (06:17)
[2020-07-12 06:44] LABS: Basophils # 0.1 10*3/uL (0.0-0.2); Basophils % 0.7 % (0.0-0.8); Eosinophils # 0.6 10*3/uL (0.0-0.87); Eosinophils % 8.1 % (0.00-10.9); Hematocrit 27.9 VOL% (35.7-47.0); Hemoglobin 9.9 GM/DL (12.0-16.0); Immature Granulocytes % 0.4 %; Immature Granulocytes Absolute 0.03 #; Lymphocytes # 0.7 10*3/uL (1.4-4.0); Lymphocytes % 10.7 % (21.3-54.2); Mean Corpuscular HGB Conc 35.5 GM/DL (32-36); Mean Corpuscular Volume 83.8 FL (87-102); Mean Platelet Volume 9.1 FL (9.6-12.0); Monocytes % 11.3 % (1.7-12.7); Neutrophils % 68.8 % (38.7-73.9); Platelet Count 180 T/CUMM (130-400); Red Blood Count 3.33 MC/CUMM (3.8-5.5); White Blood Count 6.9 T/CUMM (4-12)
[2020-07-12] MEDS: INSULIN REGULAR 100 UNIT/ML SUBCUT SCH ×4 (07:10→21:04)
[2020-07-12 07:18] LABS: Albumin 3.1 G/DL (3.4-5.0); Calcium 9.1 MG/DL (8.5-10.1); Osmolality,Calculated 272.5 MOS/KG (273-304); Potassium 3.6 MMOL/L (3.5-5.1); Total Protein 7.7 G/DL (6.4-8.2)
[2020-07-12] MEDS: FUROSEMIDE 40 MG TABLET PO SCH (08:44)
[2020-07-12] MEDS: LACTULOSE 20 GM/30 ML UDCUP PO SCH ×3 (08:44→21:03)
[2020-07-12] MEDS: PANTOPRAZOLE 40 MG TABLET PO SCH (08:44)
[2020-07-12] MEDS: DULoxetine 30 MG CAPSULE PO SCH (08:44)
[2020-07-12] MEDS: RIFAXIMIN 550 MG TABLET PO SCH ×2 (08:44→21:03)
[2020-07-12] MEDS: MELOXICAM 7.5 MG TABLET PO SCH ×2 (08:45→21:02)
[2020-07-12] MEDS: POTASSIUM CHLORIDE 20 MEQ TABLET PO SCH ×3 (08:45→21:04)
[2020-07-12] MEDS: SPIRONOLACTONE 25 MG TABLET PO SCH (08:45)
[2020-07-12] MEDS: CHOLECALCIFEROL 1,000 UNIT TABLET PO SCH (08:45)
[2020-07-12] MEDS: GABAPENTIN 300 MG CAPSULE PO SCH ×3 (08:45→21:03)
[2020-07-12] MEDS: KETOROLAC 0.5% OPH SOLN 5 ML BOTTLE RIGHT EYE SCH ×4 (08:46→21:02)
[2020-07-12] MEDS: prednisoLONE ACETATE 1% OPH SUSP 5 ML BOTTLE RIGHT EYE SCH ×4 (08:52→21:01)
[2020-07-12] MEDS: ZINC OXIDE PASTE 113 GM TUBE TOP SCH ×2 (08:52→21:01)
[2020-07-12] MEDS: amLODIPine 10 MG TABLET PO SCH (08:52)
[2020-07-12] MEDS: OFLOXACIN 0.3% OPH SOLN 5 ML BOTTLE RIGHT EYE SCH ×4 (08:52→21:01)
[2020-07-12] MEDS: cefTRIAXone 1,000 MG in SYRINGE 1 EACH IV SCH (11:54)
[2020-07-12] MEDS ORDERED: MAGNESIUM SULF RIDER 2 GM in PREMIX 1 EACH IV ONE (13:06)
[2020-07-12] MEDS: ZALEPLON 5 MG CAPSULE PO SCH (21:03)
[2020-07-12] MEDS: ENOXAPARIN 30 MG/0.3 ML SYRINGE SUBCUT SCH (21:03)
[2020-07-13] MEDS: LEVOTHYROXINE 50 MCG TABLET PO SCH (05:30)
[2020-07-13 05:49] LABS: Basophils % 0.5 % (0.0-0.8); Eosinophils # 0.5 10*3/uL (0.0-0.87); Eosinophils % 7.2 % (0.00-10.9); Hematocrit 27.1 VOL% (35.7-47.0); Hemoglobin 9.6 GM/DL (12.0-16.0); Immature Granulocytes % 0.3 %; Immature Granulocytes Absolute 0.02 #; Lymphocytes # 0.7 10*3/uL (1.4-4.0); Mean Corpuscular HGB Conc 35.4 GM/DL (32-36); Mean Corpuscular Volume 83.4 FL (87-102); Mean Platelet Volume 9.3 FL (9.6-12.0); Monocytes % 11.9 % (1.7-12.7); Neutrophils % 69.1 % (38.7-73.9); Platelet Count 162 T/CUMM (130-400); Red Blood Count 3.25 MC/CUMM (3.8-5.5); Red Cell Distribution Width 14.9 % (9.3-17.3); White Blood Count 6.4 T/CUMM (4-12)
[2020-07-13 06:21] LABS: Albumin 2.9 G/DL (3.4-5.0); Bilirubin,Total 2.7 MG/DL (0.2-1.0); Calcium 8.8 MG/DL (8.5-10.1); Osmolality,Calculated 273.4 MOS/KG (273-304); Potassium 3.3 MMOL/L (3.5-5.1); Total Protein 7.2 G/DL (6.4-8.2)
[2020-07-13] MEDS: LACTULOSE 20 GM/30 ML UDCUP PO SCH ×3 (08:49→20:35)
[2020-07-13] MEDS: CHOLECALCIFEROL 1,000 UNIT TABLET PO SCH (08:50)
[2020-07-13] MEDS: INSULIN REGULAR 100 UNIT/ML SUBCUT SCH ×4 (08:50→20:35)
[2020-07-13] MEDS: FUROSEMIDE 40 MG TABLET PO SCH (08:50)
[2020-07-13] MEDS: CYANOCOBALAMIN 1000 MCG/1 ML VIAL IM SCH ×2 (08:50→09:03)
[2020-07-13] MEDS: DULoxetine 30 MG CAPSULE PO SCH (08:50)
[2020-07-13] MEDS: SPIRONOLACTONE 25 MG TABLET PO SCH (08:51)
[2020-07-13] MEDS: GABAPENTIN 300 MG CAPSULE PO SCH (08:51)
[2020-07-13] MEDS: ZINC OXIDE PASTE 113 GM TUBE TOP SCH ×2 (08:51→20:37)
[2020-07-13] MEDS: amLODIPine 10 MG TABLET PO SCH (08:51)
[2020-07-13] MEDS: MELOXICAM 7.5 MG TABLET PO SCH (08:51)
[2020-07-13] MEDS: POTASSIUM CHLORIDE 20 MEQ TABLET PO SCH ×3 (08:51→20:34)
[2020-07-13] MEDS: RIFAXIMIN 550 MG TABLET PO SCH ×2 (08:51→20:35)
[2020-07-13] MEDS: PANTOPRAZOLE 40 MG TABLET PO SCH (08:51)
[2020-07-13] MEDS: prednisoLONE ACETATE 1% OPH SUSP 5 ML BOTTLE RIGHT EYE SCH ×4 (13:05→20:38)
[2020-07-13] MEDS: OFLOXACIN 0.3% OPH SOLN 5 ML BOTTLE RIGHT EYE SCH ×4 (13:05→20:41)
[2020-07-13] MEDS: KETOROLAC 0.5% OPH SOLN 5 ML BOTTLE RIGHT EYE SCH ×4 (13:05→20:38)
[2020-07-13] MEDS: GABAPENTIN 100 MG CAPSULE PO SCH (20:34)
[2020-07-13] MEDS: ZALEPLON 5 MG CAPSULE PO SCH (20:35)
[2020-07-13] MEDS: ENOXAPARIN 30 MG/0.3 ML SYRINGE SUBCUT SCH (20:35)
[2020-07-14] MEDS: LEVOTHYROXINE 50 MCG TABLET PO SCH (06:21)
[2020-07-14] MEDS: GABAPENTIN 100 MG CAPSULE PO SCH ×2 (08:50→22:03)
[2020-07-14] MEDS: POTASSIUM CHLORIDE 20 MEQ TABLET PO PRN (08:51)
[2020-07-14] MEDS: DULoxetine 30 MG CAPSULE PO SCH (08:52)
[2020-07-14] MEDS: amLODIPine 10 MG TABLET PO SCH (08:52)
[2020-07-14] MEDS: RIFAXIMIN 550 MG TABLET PO SCH ×2 (08:52→22:04)
[2020-07-14] MEDS: CHOLECALCIFEROL 1,000 UNIT TABLET PO SCH (08:52)
[2020-07-14] MEDS: SPIRONOLACTONE 25 MG TABLET PO SCH (08:53)
[2020-07-14] MEDS: PANTOPRAZOLE 40 MG TABLET PO SCH (08:53)
[2020-07-14] MEDS: FUROSEMIDE 40 MG TABLET PO SCH (08:54)
[2020-07-14] MEDS: LACTULOSE 20 GM/30 ML UDCUP PO SCH (08:55)
[2020-07-14] MEDS: POTASSIUM CHLORIDE 20 MEQ TABLET PO SCH ×3 (08:56→22:03)
[2020-07-14] MEDS: prednisoLONE ACETATE 1% OPH SUSP 5 ML BOTTLE RIGHT EYE SCH ×4 (08:56→22:00)
[2020-07-14] MEDS: KETOROLAC 0.5% OPH SOLN 5 ML BOTTLE RIGHT EYE SCH ×4 (08:57→22:01)
[2020-07-14] MEDS: OFLOXACIN 0.3% OPH SOLN 5 ML BOTTLE RIGHT EYE SCH ×4 (08:57→22:01)
[2020-07-14] MEDS: INSULIN REGULAR 100 UNIT/ML SUBCUT SCH ×4 (08:57→22:05)
[2020-07-14] MEDS: ZINC OXIDE PASTE 113 GM TUBE TOP SCH ×2 (08:57→22:03)
[2020-07-14] MEDS: ZALEPLON 5 MG CAPSULE PO SCH (22:04)
[2020-07-14] MEDS: ENOXAPARIN 30 MG/0.3 ML SYRINGE SUBCUT SCH (22:05)
[2020-07-15 05:38] LABS: Calcium 8.5 MG/DL (8.5-10.1); Osmolality,Calculated 266.7 MOS/KG (273-304); Potassium 3.7 MMOL/L (3.5-5.1)
[2020-07-15] MEDS: LEVOTHYROXINE 50 MCG TABLET PO SCH (06:07)
[2020-07-15] MEDS: INSULIN REGULAR 100 UNIT/ML SUBCUT SCH (08:15)
[2020-07-15] MEDS: CHOLECALCIFEROL 1,000 UNIT TABLET PO SCH (08:27)
[2020-07-15] MEDS: SPIRONOLACTONE 25 MG TABLET PO SCH (08:28)
[2020-07-15] MEDS: PANTOPRAZOLE 40 MG TABLET PO SCH (08:28)
[2020-07-15] MEDS: GABAPENTIN 100 MG CAPSULE PO SCH (08:28)
[2020-07-15] MEDS: DULoxetine 30 MG CAPSULE PO SCH (08:28)
[2020-07-15] MEDS: POTASSIUM CHLORIDE 20 MEQ TABLET PO SCH (08:28)
[2020-07-15] MEDS: RIFAXIMIN 550 MG TABLET PO SCH (08:28)
[2020-07-15] MEDS: amLODIPine 10 MG TABLET PO SCH (08:28)
[2020-07-15] MEDS: OFLOXACIN 0.3% OPH SOLN 5 ML BOTTLE RIGHT EYE SCH (08:31)
[2020-07-15] MEDS: KETOROLAC 0.5% OPH SOLN 5 ML BOTTLE RIGHT EYE SCH (08:31)
[2020-07-15] MEDS: prednisoLONE ACETATE 1% OPH SUSP 5 ML BOTTLE RIGHT EYE SCH (08:32)
[2020-07-15] MEDS: ZINC OXIDE PASTE 113 GM TUBE TOP SCH (08:32)
[2020-07-15] MEDS: FUROSEMIDE 40 MG TABLET PO SCH (08:36)
[2020-07-15] MEDS: LACTULOSE 20 GM/30 ML UDCUP PO SCH (08:37)
[2020-07-15 10:59] VITALS: BP 145/65
== END 2020-07-15 11:15 | DRG 441 ==
LOC: EDBD → EDUNIT# → N.ED 14:44 → N.EDINP 14:44 → N.4E 18:19 → SUATTDRO 07-09 15:34
PROVIDERS: ADMIT Internal Medicine; ATTEND Internal Medicine Geriatric Medicine